=== PATIENT | female | born 1960 | race Caucasian/White ===

== ENCOUNTER → 2017-06-21 | Outpatient (CLI) | payer BC ==
[~2017-06-21] MED LIST: ATEN50TA8 PO; DOCU-105 PO; DOCU-94 PO; IBUP-103 PO; LOSA1TAB38 PO; SIME80CH PO; SODI1ENE4 RE; ZNT/150 PO
== END | disposition home or self-care (01) ==
LOC: C.RDSM 16:51
PROVIDERS: ATTEND Physical Medicine & Rehabilitation Sports Medicine
DX: M25.562 Pain in left knee (principal); Z96.651 Presence of right artificial knee joint

== ENCOUNTER → 2017-11-30 | Outpatient (CLI) | payer OTHER ==
[~2017-11-30] MED LIST changes: -ATEN50TA8 PO; +CYAN10005 PO; -DOCU-94 PO; +HYDR25TA4 PO; -LOSA1TAB38 PO; -SIME80CH PO; -SODI1ENE4 RE; +VNTHFA/IN INH
[2017-11-30 13:16] LABS: BASO % 0.2 %; BASO ABS # 0.02 K/uL (0-0.2); EOS % 1.4 %; EOS ABS # 0.12 K/uL (0-0.5); HEMATOCRIT 38.3 % (37-47); HEMOGLOBIN 12.6 g/dL (12.0-16.0); IG# 0.01 K/uL (0.00-0.02); LYMPH % 31.1 %; LYMPH ABS # 2.61 K/uL (1.2-3.4); MEAN CELL VOLUME 110.1 fL (80-100); MEAN CORPUSCULAR HEMOGLOBIN 36.2 pg (25-34); MEAN CORPUSCULAR HGB CONC 32.9 g/dl (32-36); MEAN PLATELET VOLUME 9.9 fL (7.4-10.4); MONO % 9.2 %; MONO ABS # 0.77 K/uL (0.11-0.59); NEUT ABS # 4.85 K/uL (1.4-6.5); PLATELET COUNT 177 K/uL (130-400); RED CELL DISTRIBUTION WIDTH CV 14.6 % (11.5-14.5); WHITE BLOOD COUNT 8.38 K/uL (4.8-10.8)
--- NOTE | 2017-11-30 13:16 | DIAGNOSTIC IMAGING REPORT ---
TWO VIEW CHEST CLINICAL HISTORY: Preoperative examination. FINDINGS: PA and lateral chest radiographs are compared to study dated 12/06/2013. The cardiomediastinal silhouette is unremarkable. The lungs and pleural spaces are clear. There is no pneumothorax. The bony thorax appears intact. IMPRESSION: No active disease in the chest. Electronically signed by: Navid Gil M.D. 11/30/2017 1:15 PM Dictated Date/Time: 11/30/2017 1:14 PM
[2017-11-30 13:30] LABS: PTT PATIENT 23.9 SECONDS (21.0-31.0)
[2017-11-30 13:33] LABS: BLOOD UREA NITROGEN 15 mg/dl (7-18); CALCIUM 8.9 mg/dl (8.5-10.1); CARBON DIOXIDE 27 mmol/L (21-32); CREATININE 0.49 mg/dl (0.60-1.20); GLUCOSE 96 mg/dl (70-99); POTASSIUM 3.4 mmol/L (3.5-5.1); SODIUM 141 mmol/L (136-145)
== END | disposition home or self-care (01) ==
LOC: C.CPL 12:23
PROVIDERS: ATTEND Physical Medicine & Rehabilitation Sports Medicine
DX: Z01.818 Encounter for other preprocedural examination (principal); Z01.810 Encounter for preprocedural cardiovascular examination; Z01.812 Encounter for preprocedural laboratory examination

== ENCOUNTER → 2017-11-30 | Outpatient (CLI) | payer OTHER ==
--- NOTE | 2017-11-30 12:25 | DIAGNOSTIC IMAGING REPORT ---
LEG LENGTH STUDY (WHOLE LEG) CLINICAL HISTORY: PRE OP EXAM preoperative evaluation COMPARISON STUDY: No previous studies for comparison. FINDINGS: Total right leg length 83 cm. Total left leg length 82.5 cm. Left leg is 5 mm shorter compared to the right. Femoral length on the right is 46.8 cm. Femoral length the left is 46.7 cm. IMPRESSION: 1. Total right leg length 83 cm. Total left leg length 82.5 cm. 2. Right femoral length 46.8 cm. Left femoral length 46.7 cm. The above report was generated using voice recognition software. It may contain grammatical, syntax or spelling errors. Electronically signed by: J Luis Coleman M.D. 11/30/2017 12:24 PM Dictated Date/Time: 11/30/2017 12:21 PM
== END | disposition home or self-care (01) ==
LOC: C.RDSM 09:51
PROVIDERS: ATTEND Physician Assistant
DX: Z01.818 Encounter for other preprocedural examination (principal)

== ENCOUNTER 2018-11-27 16:35 | Inpatient (IN) ==
[2018-11-27] MEDS ORDERED: ALBUTEROL 0.083% NEBU SOLN 3 ML VIAL NEB STA (17:02)
[2018-11-27] MEDS ORDERED: LEVOFLOXACIN/D5W 750 MG/150 ML BAG IV STA (17:02)
--- NOTE | 2018-11-27 17:49 | XRay Report ---
XR chest 1V portable HISTORY: Atypical Chest Pain COMPARISON: Chest 12/10/2017. FINDINGS: Slightly rotated study. No pneumothorax. No pleural effusions. The lungs are clear. The hea rt is normal in size. IMPRESSION: No acute process. Electronically signed by: Javier Amato M.D. 11/27/2018 5:47 PM
[2018-11-27 17:55] LABS: Basophils # (auto) 0.02 K/uL (0-0.2); Basophils % (auto) 0.1 %; Hematocrit (blood only) 38.7 % (37-47); Immature Granulocytes # (auto) 0.11 K/uL (0.00-0.02); Immature Granulocytes % (auto) 0.5 %; Lymphocytes # (auto) 1.02 K/uL (1.2-3.4); Lymphocytes % (auto) 4.3 %; Mean Corpuscular Hgb Conc 33.6 g/dL (32-36); Mean Corpuscular Volume 107.2 fL (80-100); Mean Platelet Volume 9.8 fL (7.4-10.4); Monocytes # (auto) 2.96 K/uL (0.11-0.59); Monocytes % (auto) 12.5 %; Neutrophils # (auto) 19.63 K/uL (1.4-6.5); Neutrophils % (auto) 82.6 %; Platelet Count 190 K/uL (130-400); RDW Coefficient of Variation 19.6 % (11.5-14.5); RDW Standard Deviation 76.6 fL (36.4-46.3); Red Blood Count 3.61 M/uL (4.2-5.4); White Blood Count 23.74 K/uL (4.8-10.8)
[2018-11-27 18:21] LABS: Alanine Aminotransferase 18 U/L (12-78); Albumin Level 2.9 gm/dl (3.4-5.0); BUN Creatinine Ratio 17.2 (10-20); Blood Urea Nitrogen 11 mg/dl (7-18); Calcium 8.4 mg/dl (8.5-10.1); Carbon Dioxide 31 mmol/L (21-32); Chloride 92 mmol/L (98-107); Est GFR (African American) 113.9; Est GFR (Non-African American) 98.3; Glucose 125 mg/dl (70-99); Sodium 133 mmol/L (136-145)
[2018-11-27] MEDS ORDERED: OXYCODONE HCL IR 5 MG TAB (IMMEDIATE RELEASE) PO STA (18:21)
[2018-11-27 18:24] LABS: Albumin Globulin Ratio 0.8 (0.9-2); Alkaline Phosphatase 143 U/L (45-117); Bilirubin,Total 1.3 mg/dl (0.2-1); Globulin 3.8 gm/dl (2.5-4.0); Total Protein 6.7 gm/dl (6.4-8.2); Troponin I < 0.015 ng/ml (0-0.045)
[2018-11-27 19:28] LABS: Potassium 2.2 mmol/L (3.5-5.1)
[2018-11-27] MEDS ORDERED: POTASSIUM CHLORIDE 20 MEQ TABCR PO STA ×2 (19:29→21:27)
[2018-11-27] MEDS: POTASSIUM CHLORIDE / WTR 10 MEQ/100 ML PLCT IV SCH ×2 (19:42→21:01)
[2018-11-27 19:55] LABS: Magnesium 1.8 mg/dl (1.8-2.4)
[2018-11-27] MEDS ORDERED: MAGNESIUM SULFATE / D5W 1 GM/100 ML BAG IV ONE (20:02)
--- NOTE | 2018-11-27 20:25 | Emergency Department Note ---
Entered by Aliya Simeon acting as a scribe for History of Present Illness General Chief complaint: Shortness of Breath/Dyspnea Stated complaint: CANT BREATH Source: patient History of Present Illness Onset (ago): day(s) 2 Location: chest Pain Consistency: + other (worsening) Maximum Pain Intensity: 7 Quality: + other (shortness of breath) Relieved By: not by medication (Ventolin inhaler) Associated symptoms: + denies other symptoms (diarrhea, urinary symptoms), + cough (productive) and + nausea/vomiting The patient is a 58 year old female who presents to the Emergency Room with complaints of worsening shortness of breath starting 2 days ago. The patient states that 2 days ago she started coughing up a yellow-brown mucus. She reports that it has continued to get worse to the point that she vomited once today from coughing so much. She states that it is to the point now that she feels like she is short of breath. She notes that she does have a Ventolin inhaler at home that she has been using with no relief. The patient complains of nausea. She notes that her was sick with similar symptoms, but not as bad as her. She notes that she is a smoker. She notes that she did not check her temperature. The patient denies recent steroid use, diarrhea, urinary symptoms, and wearing O2 at home. Home Medications Home Medications Medication Instructions Recorded Confirmed Type albuterol sulfate [Ventolin HFA] 2 puff INHALATION Q6H PRN 02/06/18 11/27/18 History docusate sodium 100 mg PO BID PRN 02/06/18 11/27/18 History hydrochlorothiazide 25 mg PO DAILY PRN 02/06/18 11/27/18 History ranitidine HCl 150 mg PO BID PRN 02/06/18 11/27/18 History oxycodone-acetaminophen 1 tab PO DIRECTED PRN 11/27/18 11/27/18 History potassium chloride 10 meq PO BID 11/27/18 11/27/18 History Allergies Allergy/AdvReac Type Severity Reaction Status Date / Time Bactrim Allergy Severe ANAPHYLAXIS Verified 12/21/17 05:39 celecoxib Allergy Severe ANAPHYLAXIS Verified 11/27/18 17:25 sulfamethoxazole Allergy Severe ANAPHYLAXIS Verified 11/27/18 17:25 trimethoprim Allergy Severe ANAPHYLAXIS Verified 11/27/18 17:25 Past Med/Surg History Medical History Ovarian cyst (Chronic) Diverticulitis (Chronic) Hypertension (Chronic) Abdominal pain (Acute) Blood per rectum (Acute) Colitis (Acute) Dehydration (Acute) Fecal retention (Acute) Hypokalemia (Acute) Left knee DJD Vomiting (Acute) COPD (chronic obstructive pulmonary disease) Surgical History S/P knee replacement (Resolved) Family History Other Cancer Gallbladder disease Hypertension Lung disease Social History marital status: Current Living Situation: Spouse current occupational status: employed Feels Safe at Home: Yes Smoking Status: Current every day smoker Review of Systems See HPI for pertinent positives & negatives. and A total of 10 systems reviewed and were otherwise negative Physical Exam Vital Signs Vital Signs - 24 hr 11/27/18 16:43 11/27/18 17:04 11/27/18 17:31 Temperature 36.8 C Temperature Source Oral Sepsis Recent Fever Within 48 Hours No Sepsis Action Taken by Nursing No Action Required Pulse Rate 102 H Pulse Rate [Apical] 96 H Pulse Rate from SpO2 Sensor Pulse Rhythm [Apical] Regular Respiratory Rate 24 20 Respiratory Effort / Characteristics Labored Short of Breath SOB on Exertion Respiratory Depth Normal Normal Respiratory Pattern Regular Blood Pressure 112/62 Blood Pressure [Right Arm] 116/78 Blood Pressure Mean 78 Blood Pressure Mean [Right Arm] 90 Blood Pressure Position [Right Arm] Sitting Pulse Oximetry 92 91 91 Oxygen Delivery Method Room Air Room Air Room Air Oxygen Flow Rate Fraction of Inspired Oxygen 91 11/27/18 17:45 11/27/18 18:30 Temperature Temperature Source Sepsis Recent Fever Within 48 Hours Sepsis Action Taken by Nursing Pulse Rate 98 H Pulse Rate [Apical] 92 H Pulse Rate from SpO2 Sensor 99 H Pulse Rhythm [Apical] Respiratory Rate 18 18 Respiratory Effort / Characteristics Respiratory Depth Respiratory Pattern Blood Pressure 110/43 L Blood Pressure [Right Arm] Blood Pressure Mean 65 Blood Pressure Mean [Right Arm] Blood Pressure Position [Right Arm] Pulse Oximetry 95 94 Oxygen Delivery Method Nasal Cannula Oxygen Flow Rate 2 Fraction of Inspired Oxygen GENERAL: sitting up in bed, agitated, on nasal canula, disheveled, dyspneic with conversation EYE EXAM: normal conjunctiva OROPHARYNX: no exudate, no erythema, lips, buccal mucosa, and tongue normal and mucous membranes are moist NECK: supple, no nuchal rigidity, no adenopathy, non-tender LUNGS: Diffuse wheezing bilaterally. Normal chest wall mechanics HEART: no murmurs, S1 normal and S2 normal ABDOMEN: abdomen soft, non-tender, normo-active bowel sounds, no masses, no rebound or guarding. BACK: Back is symmetrical on inspection and there is no deformity, no midline tenderness, no CVA tenderness. SKIN: no rashes and no bruising UPPER EXTREMITIES: upper extremities are grossly normal. LOWER EXTREMITIES: No pitting edema. Calves are equal bilaterally. NEURO EXAM: Normal sensorium, cranial nerves II-XII grossly intact, normal spee ch, no gross weakness of arms, no gross weakness of legs. Course ED COURSE: Vital signs were reviewed and showed tachycardia and hypoxia. The patients medical record was reviewed The above diagnostic studies were performed and reviewed. ED treatments and interventions as stated above. 1657: The patient was evaluated in room A2. A complete history and physical examination was performed. 1831: I reevaluated the patient and updated her on her test results. She is refusing to stay, but is willing to touch base with her . 1915: Upon reevaluation, the patient is willing to stay. I discussed my findings with the patient and she understands and agrees with the treatment plan. Based on the patients age, coexisting illnesses, exam and lab findings the decision to treat as an inpatient was made. The patient remained stable while under my care. The patient will be evaluated for further management. 1925: Dr. Herman LONG Hospitalist is aware of the patient at this time. Consultations Consultation #1: Dr. Herman LONG Hospitalist is aware of the patient at this time. Time: 19:25 Administered Medications Potassium Chloride (K Steven / Wtr) 10 meq in 100 mls @ 100 mls/hr IV Q1H HERB Stop: 11/27/18 21:29 Last Admin: 11/27/18 19:42 Dose: 100 mls/hr Documented by: [id number] Discontinued Medications Albuterol (Ventolin 0.083% 2.5mg/3ml) 5 mg NEB NOW STA Stop: 11/27/18 17:03 Last Admin: 11/27/18 17:41 Dose: 5 mg Documented by: [id number] Levofloxacin/Dextrose (Levaquin/D5w) 750 mg in 150 mls @ 100 mls/hr IV NOW STA Stop: 11/27/18 18:31 Last Infusion: 11/27/18 19:40 Dose: 0 mls/hr Documented by: [id number] Admin: 11/27/18 17:58 Dose: 100 mls/hr Documented by: [id number] Methylprednisolone (Solumedrol) 40 mg IV NOW STA Stop: 11/27/18 17:03 Last Admin: 11/27/18 17:58 Dose: 40 mg Documented by: [id number] Oxycodone HCl (Roxicodone Immediate Rel) 5 mg PO NOW STA Stop: 11/27/18 18:22 Last Admin: 11/27/18 18:30 Dose: 5 mg Documented by: [id number] Potassium Chloride (Klor-Con M20) 40 meq PO NOW STA Stop: 11/27/18 19:30 Last Admin: 11/27/18 19:42 Dose: 40 meq Documented by: [id number] Medical Decision Making Differential Diagnosis Differential diagnoses includes but is not limited to pneumonia, bronchitis, COPD/Asthma exacerbation, pneumothorax, pulmonary embolism, congestive heart f ailure, acute coronary syndrome Medical Records Attestation: I reviewed the patient's medical records. Home Medications Current Medication List: was personally reviewed by me Laboratory Data Attestation: I reviewed the patient's lab results. Result diagrams: 11/27/18 17:37 11/27/18 18:44 Lab Results 11/27/18 11/27/18 11/27/18 Range/Units 17:37 17:37 18:44 WBC 23.74 H (4.8-10.8) K/uL RBC 3.61 L (4.2-5.4) M/uL Hgb 13.0 (12.0-16.0) g/dL Hct 38.7 (37-47) % MCV 107.2 H (80-100) fL MCH 36.0 H (25-34) pg MCHC 33.6 (32-36) g/dL RDW Std Deviation 76.6 H (36.4-46.3) fL RDW Coeff of [place] 19.6 H (11.5-14.5) % Plt Count 190 (130-400) K/uL MPV 9.8 (7.4-10.4) fL Immature Gran % (Auto) 0.5 % Neut % (Auto) 82.6 % Lymph % (Auto) 4.3 % [place] % (Auto) 12.5 % Eos % (Auto) 0.0 % Baso % (Auto) 0.1 % Immature Gran # (Auto) 0.11 H (0.00-0.02) K/uL Neut # (Auto) 19.63 H (1.4-6.5) K/uL Lymph # (Auto) 1.02 L (1.2-3.4) K/uL [place] # (Auto) 2.96 H (0.11-0.59) K/uL Eos # (Auto) 0.00 (0-0.5) K/uL Baso # (Auto) 0.02 (0-0.2) K/uL Sodium 133 L (136-145) mmol/L Potassium 2.2 L* (3.5-5.1) mmol/L Chloride 92 L (98-107) mmol/L Carbon Dioxide 31 (21-32) mmol/L Anion Gap 10.0 (3-11) BUN 11 (7-18) mg/dl Creatinine 0.67 (0.6-1.2) mg/dl Est Cr Clr Drug Dosing Not Reportable Est GFR ( Amer) 113.9 Est GFR (Non-Af Amer) 98.3 BUN/Creatinine Ratio 17.2 (10-20) Glucose 125 H (70-99) mg/dl Calcium 8.4 L (8.5-10.1) mg/dl Magnesium Cancelled 1.8 Total Bilirubin 1.3 H (0.2-1) mg/dl AST 22 (15-37) U/L ALT 18 (12-78) U/L Alkaline Phosphatase 143 H (45-117) U/L Troponin I < 0.015 (0-0.045) ng/ml Total Protein 6.7 (6.4-8.2) gm/dl Albumin 2.9 L (3.4-5.0) gm/dl Globulin 3.8 (2.5-4.0) gm/dl Albumin/Globulin Ratio 0.8 L (0.9-2) Lipase 22 L (73-393) U/L Imaging Data Radiologist's Impression: Radiology results as stated below per my review and the radiologist's interpretation: XR chest 1V portable HISTORY: Atypical Chest Pain COMPARISON: Chest 12/10/2017. FINDINGS: Slightly rotated study. No pneumothorax. No pleural effusions. The lungs are clear. The heart is normal in size. IMPRESSION: No acute process. Electronically signed by: Javier Amato M.D. 11/27/2018 5:47 PM ECG Data Attestation: I personally reviewed and interpreted this ECG as follows: Indication: SOB/dyspnea Rate (beats per minute): 101 Rhythm: sinus tachycardia Findings: + other (normal axis), + nonspecific-ST abn (inferior and lateral) and + prolonged QT Comparison ECG Date: from (02/06/2018) Change: the following changes noted (QT prolongation is worse, nonspecific ST changes in the inferior and lateral are worse) Blood Pressure Blood Pressure Findings: Normal blood pressure Blood Pressure Disposition: did not require urgent referral MDM Narrative Patient is a 58-year-old female who presents the ER for cough, congestion and sh ortness of breath. She is a past medical history of COPD diverticulitis, hypertension, and hypokalemia. She notes her is sick with similar symptoms. IV was established and blood work was obtained and showed a leukocytosis of 23.7 thousand. No significant anemia. BMP with a potassium of 2.2. Mild hyponatremia. Bilirubin LFTs and troponin was unremarkable. Lipase was normal. Chest x-ray shows no focal infiltrate. EKG has some nonspecific ST wave changes which I favor secondary to the hypokalemia. I favor this potassium is low secondary to the neb treatments. Patient was given 40 mEq orally and 20 mEq IV. Patient did want to go home but I explained at length with the leukoc ytosis, mild hypoxia with a pulse ox of 88 to 92% associated with a hypokalemia and dyspnea with conversation I did feel was beneficial to bring her into the hospital. She was eventually agreeable. She was also given steroids and IV Levaquin. She is updated bedside. She was admitted to the hospital after discussion with the hospitalist, her and the patient. Impression & Plan COPD exacerbation, Bronchitis, Leukocytosis, Hypokalemia, Acute electrocardiography changes Discharge Plan Visit Data Chief Complaint: Shortness of Breath/Dyspnea Stated Complaint: CANT BREATH ED Provider: Fei Angelo Discharge Problem: COPD exacerbation, Bronchitis, Leukocytosis, Hypokalemia, Acute electrocardiography changes Patient Disposition: Being Evaluated by Hospitalist Forms Stand Alone Forms: My [facility] Prescriptions Prescriptions: No Action albuterol sulfate [Ventolin HFA] 90 mcg/actuation Hfa Aerosol Inhaler 2 puff INHALATION Q6H PRN (Reason: Shortness Of Breath Or Wheezing) RF: 0 docusate sodium 100 mg Capsule 100 mg PO BID PRN (Reason: Constipation) RF: 0 hydrochlorothiazide 25 mg Tablet 25 mg PO DAILY PRN (Reason: Hypertension) RF: 0 ranitidine HCl 150 mg Tablet 150 mg PO BID PRN (Reason: Acid Reflux) RF: 0 oxycodone-acetaminophen 5-325 mg tablet 1 tab PO DIRECTED PRN (Reason: Pain) RF: 0 potassium chloride 10 mEq tablet extended release 10 meq PO BID RF: 0 Referrals Referrals: PCP,NO [Primary Care Provider] - The scribe's documentation has been prepared under my direction and personally reviewed by me in its entirety. I confirm that the note above accurately reflects all work, treatment, procedures, and medical decision making performed by me.
--- NOTE | 2018-11-27 20:54 | History & Physical Report ---
Date of Service November 27, 2018 Assessment & Plan (1) COPD exacerbation: 58-year-old female with history of COPD, tobacco use, hypertension, hypokalemia presents with URI symptoms and dyspneaappears to be COPD exacerbation. The patient denies a significant history of exacerbations and hospitalizations. In addition, patient denies a history of outpatient events requiring steroid therapy. She only uses a rescue inhaler as needed. Patient's x-ray was negative for signs of pneumonia and she is been afebrile. This looks more like a viral picture causing any worsening of chronic lung disease, although the patient did have a white count of 23.74. Patient's urine is possibly infected, but may be contamination considering number of epithelial cells and the fact the patient is not having any dysuria. Patient was also found to be hypokalemic COPD exacerbation IV Solu-Medrol 40 mg 3 times daily, follow potassium closely Duo nebs every 2 hours Adding on doxycycline. Avoiding QT prolonging antibiotics in the setting of hypokalemia Leukocytosis Follow fever curve, likely viral bronchitis, adding doxycycline for atypical coverage in the setting COPD Hypokalemia Follow magnesium Repleted potassium 80 M EQ p.o., 2 bags of K rider EKG in the ED did not show any significant changes compared to previous EKGs Repeat EKG in the morning Smoking history Provide cessation education DVT prophylaxis Lovenox 40 every 24 hours CODE STATUS Full (2) Bronchitis: (3) Leukocytosis: (4) Hypertension: (5) Hypokalemia: History of Present Illness Patient states that she has had issues Chief Complaint: COPD exacerbation Primary Care Provider: NO PCP 58-year-old female with history of COPD, hypertension, hypokalemia presents with URI symptoms, dyspnea and cough. Patient states that the cold symptoms began 3 days ago and included runny nose and cough. She denies having any fevers. Her is also present states that he has been sick for about 1 week with a cold. Patient has a history of COPD and is a current smoker. Her only medication that she is in the outpatient is only albuterol as needed. She denies being hospitalized previously for a COPD exacerbation and she denies needing steroids before in the past. Patient describes being able to ambulate freely without dyspnea at baseline. States that she became concerned because today her cough was so bad that she was dry heaving and cannot keep food down. She experiences pleuritic chest pain with coughing. Patient denies a history of blood clots. Patient states that she has had issues with potassium balance before in the past, takes 20 M EQ per day. Constitutional; denies fevers, chills, night sweats CV; pleuritic chest pain with coughing, denies palpitations Pulmonary; reports dyspnea, wheezing GI; denies abdominal pain, reports nausea and vomiting with cough. Allergies Allergy/AdvReac Type Severity Reaction Status Date / Time Bactrim Allergy Severe ANAPHYLAXIS Verified 12/21/17 05:39 celecoxib Allergy Severe ANAPHYLAXIS Verified 11/27/18 17:25 sulfamethoxazole Allergy Severe ANAPHYLAXIS Verified 11/27/18 17:25 trimethoprim Allergy Severe ANAPHYLAXIS Verified 11/27/18 17:25 Home Medications Home Medications Medication Instructions Recorded Confirmed Type albuterol sulfate [Ventolin HFA] 2 puff INHALATION Q6H PRN 02/06/18 11/27/18 History docusate sodium 100 mg PO BID PRN 02/06/18 11/27/18 History hydrochlorothiazide 25 mg PO DAILY PRN 02/06/18 11/27/18 History ranitidine HCl 150 mg PO BID PRN 02/06/18 11/27/18 History oxycodone-acetaminophen 1 tab PO DIRECTED PRN 11/27/18 11/27/18 History potassium chloride 10 meq PO BID 11/27/18 11/27/18 History Past Med/Surg History Medical History Ovarian cyst (Chronic) Diverticulitis (Chronic) Hypertension (Chronic) Abdominal pain (Acute) Blood per rectum (Acute) Colitis (Acute) Dehydration (Acute) Fecal retention (Acute) Hypokalemia (Acute) Left knee DJD Vomiting (Acute) COPD (chronic obstructive pulmonary disease) Surgical History S/P knee replacement (Resolved) Family History Other Cancer Gallbladder disease Hypertension Lung disease Social History marital status: Current Living Situation: Spouse current occupational status: employed Feels Safe at Home: Yes Smoking Status: Current every day smoker Review of Systems Review of Systems: All systems reviewed & are unremarkable except as noted in HPI & below Physical Exam Constitutional: WD/WN, vitals as above Eyes: PERRL, conjunctivae normal, anicteric sclerae ENMT: external ear and nose normal, oropharynx normal Neck: trachea midline, no thyromegaly Respiratory: no respiratory distress, no retractions and not tachypneic Auscultation: + diminished lung sounds (Bilateral bases) and + wheezes (Diffuse, bilateral) Cardiovascular: RRR, no murmur, no edema Gastrointestinal (Abdomen): normal bowel sounds, soft, nontender, no hepatosplenomegaly Musculoskeletal: no cyanosis or clubbing, extremities motor strength 5/5 Skin: no rashes, warm and dry Neurologic: PERRL, EOMI, accommodation nl, no face palsy, no dysarthria Psychiatric: A+Ox3, euthymic affect Results & Data Vital Signs (Past 12 Hours) Vital Signs Temp Pulse Pulse Resp BP BP Pulse Ox 11/27/18 20:21 84 14 118/64 96 11/27/18 18:30 98 H 18 110/43 L 94 11/27/18 17:45 92 H 18 95 11/27/18 17:31 91 11/27/18 17:04 96 H 20 116/78 91 11/27/18 16:43 36.8 C 102 H 24 112/62 92 Diagnostic Findings [place], [place] [phone] XRay Report Patient: TODD LEWIS Date: 11/27/18 MR#: [id number]: [address] Acct ID:[id number]: Date: 1960[facility] Zip: [place] [address] Age: 58Location: ED Sex: F Room/Bed: Att Phy: Diagnosis: CANT BREATH Emily Phy: PCP,NO Service Date: 11/27/18 [facility] Phy: Interpreting Phy: Javier Amato MD Admit Phy: Ordering Phy: Fei Angelo DO cc: ~ XR chest 1V portable HISTORY: Atypical Chest Pain COMPARISON: Chest 12/10/2017. FINDINGS: Slightly rotated study. No pneumothorax. No pleural effusions. The lungs are clear. The heart is normal in size. IMPRESSION: No acute process. Electronically signed by: Javier Amato M.D. 11/27/2018 5:47 PM Dictated: 11/27/18 1746 Transcribed: 11/27/181745 Code Status & VTE Plan Code Status Full code VTE Prophylaxis Plan VTE Prophylaxis will be ordered: Yes Supervising Physician Co-Signing Physician Notes Pt seen/examined in conjunction with resident MD Ignacio Marroquin. Orders and plan of admission reviewed with resident. 58 y/o F Hx HTN, GERD, COPD, morbid obesity, smoker. Presenting with cough, wheezing, SOB, N/V. Her had recently been ill with a URI. Initial CXR is clear. She is hypoxic - requiring 02 and has a high white count. Labs are also notable for severe hypokalemia. OE: AAO x 3 S1,2 R BL wheezing and poor air movement NT, ND, BS + No CCE No deficits P: The pt will be treated for a COPD exacerbation. We do not have evidence of PNM and suspect viral etiology, however, she will r eceive antibiotics for the exacerbation regardless. We have repleted her K, provided Mg and will monitor on telemetry until her electrolytes normalize. She does not display any interest in smoking cessation. PG Care Time/CCT Total # of Minutes Spent Total Time Spent with Patient: Total time spent is greater than 50% in coordination of care (as documented) at patient's floor/unit and/or counseling patient: Resident Activity Tracking Resident Involvement: Resident Care Provided Care Provided: Adult Hospital Medicine (1) Leukocytosis Leukocytosis type: unspecified Qualified Code(s): D72.829 - Elevated white blood cell count, unspecified
[2018-11-27] MEDS ORDERED: DOCUSATE SODIUM 100 MG CAP PO PRN (21:23)
[2018-11-27] MEDS ORDERED: ALBUTEROL HFA 8 GM INHALER INH PRN (21:23)
[2018-11-27] MEDS ORDERED: ACETAMINOPHEN 65 ML IV PRN (21:23)
[2018-11-27] MEDS ORDERED: hydroCHLOROthiazide 25 MG TAB PO PRN (21:23)
[2018-11-27] MEDS: DOXYCYCLINE HYCLATE 100 MG in DEXTROSE 5% 100 ML IV SCH (22:01)
[2018-11-27 22:06] LABS: INR 1.1 (0.9-1.1); Prothrombin Time 11.4 Seconds (9.0-12.0)
[2018-11-27] MEDS: OXYCODONE/ACETAMINOPHEN 5mg/325mg TAB PO PRN (22:24)
[2018-11-28] MEDS: methylPREDNISolone 40 MG in SYRINGE 0 ML IV SCH ×3 (00:06→13:00)
[2018-11-28] MEDS: OXYCODONE/ACETAMINOPHEN 5mg/325mg TAB PO PRN ×3 (04:36→12:20)
[2018-11-28 06:17] LABS: Basophils # (auto) 0.01 K/uL (0-0.2); Basophils % (auto) 0.1 %; Hemoglobin 12.1 g/dL (12.0-16.0); Immature Granulocytes # (auto) 0.05 K/uL (0.00-0.02); Immature Granulocytes % (auto) 0.3 %; Lymphocytes # (auto) 0.48 K/uL (1.2-3.4); Mean Corpuscular Hgb Conc 33.6 g/dL (32-36); Mean Corpuscular Volume 106.5 fL (80-100); Mean Platelet Volume 9.8 fL (7.4-10.4); Monocytes # (auto) 0.56 K/uL (0.11-0.59); Monocytes % (auto) 3.5 %; Neutrophils # (auto) 14.99 K/uL (1.4-6.5); Neutrophils % (auto) 93.1 %; Platelet Count 188 K/uL (130-400); RDW Coefficient of Variation 19.4 % (11.5-14.5); Red Blood Count 3.38 M/uL (4.2-5.4); White Blood Count 16.09 K/uL (4.8-10.8)
[2018-11-28 06:58] LABS: Albumin Globulin Ratio 0.7 (0.9-2); Albumin Level 2.6 gm/dl (3.4-5.0); BUN Creatinine Ratio 18.2 (10-20); Bilirubin,Total 0.9 mg/dl (0.2-1); Calcium 8.1 mg/dl (8.5-10.1); Creatinine Clr Calc Pharmacy 108.8 ml/min; Est GFR (African American) 117.5; Est GFR (Non-African American) 101.3; Globulin 3.5 gm/dl (2.5-4.0); Magnesium 2.3 mg/dl (1.8-2.4); Potassium 3.1 mmol/L (3.5-5.1); Total Protein 6.1 gm/dl (6.4-8.2)
[2018-11-28] MEDS: ALBUT/IPRATROP 3MG/0.5MG NEB 3 ML VIAL NEB SCH ×2 (07:05→11:27)
[2018-11-28] MEDS ORDERED: ENOXAPARIN INJ 40 MG/0.4 ML SYR SQ SCH (08:00)
[2018-11-28] MEDS: DOXYCYCLINE HYCLATE 100 MG in DEXTROSE 5% 100 ML IV SCH (08:10)
[2018-11-28] MEDS ORDERED: POTASSIUM CHLORIDE 20 MEQ TABCR PO SCH (09:00)
--- NOTE | 2018-11-28 13:15 | Discharge Summary ---
Date of Service November 28, 2018 Admission HPI Per Admitting Provider 58-year-old female with history of COPD, hypertension, hypokalemia presents with URI symptoms, dyspnea and cough. Patient states that the cold symptoms began 3 days ago and included runny nose and cough. She denies having any fevers. Her is also present states that he has been sick for about 1 week with a cold. Patient has a history of COPD and is a current smoker. Her only medication that she is in the outpatient is only albuterol as needed. She denies being hospitalized previously for a COPD exacerbation and she denies needing steroids before in the past. Patient describes being able to ambulate freely without dyspnea at baseline. States that she became concerned because today her cough was so bad that she was dry heaving and cannot keep food down. She experiences pleuritic chest pain with coughing. Patient denies a history of blood clots. Patient states that she has had issues with potassium balance before in the past, takes 20 M EQ per day. Constitutional; denies fevers, chills, night sweats CV; pleuritic chest pain with coughing, denies palpitations Pulmonary; reports dyspnea, wheezing GI; denies abdominal pain, reports nausea and vomiting with cough. Admission Exam Per Admitting Provider Constitutional: WD/WN, vitals as above Eyes: PERRL, conjunctivae normal, anicteric sclerae ENMT: external ear and nose normal, oropharynx normal Neck: trachea midline, no thyromegaly Respiratory: no respiratory distress, no retractions and not tachypneic Auscultation: + diminished lung sounds (Bilateral bases) and + wheezes (Diffuse, bilateral) Cardiovascular: RRR, no murmur, no edema Gastrointestinal (Abdomen): normal bowel sounds, soft, nontender, no hepatosplenomegaly Musculoskeletal: no cyanosis or clubbing, extremities motor strength 5/5 Skin: no rashes, warm and dry Neurologic: PERRL, EOMI, accommodation nl, no face palsy, no dysarthria Psychiatric: A+Ox3, euthymic affect Principal Diagnosis COPD Exacerbation Discharge Exam Constitutional well developed and well nourished; no acute distress Eyes normal visual france by confrontation, PERRL and normal accommodation; no conjunctival abnormality ENMT Ears: no hearing impairment Nose: no external nose abnormality, no nasal discharge, no sinus tenderness, nasal mucous membranes not dry and no epistaxis Mouth: no lip abnormality and no audible dysphonia Neck trachea midline, no thyromegaly normal visual inspection and trachea midline; no anterior neck swelling and neck nontender Respiratory normal respiratory effort, + cough and able to speak in complete sentences; no respiratory distress, no labored breathing, no retractions, does not use accessory muscles, not tachypneic, no audible wheezes, no grunting and no nasal flaring Auscultation: + wheezes (Diffuses wheezes noted in all lung france.); no crackles, no rales and no rhonchi Cardiovascular RRR, no murmur, no edema Gastrointestinal (Abdomen) Inspection/Auscultation: abdomen normal to inspection and normal bowel sounds; abdomen not distended Percussion/Palpation: abdomen soft; abdomen nontender, no guarding and abdomen not firm Musculoskeletal Head/Neck/Chest: normocephalic and head atraumatic Skin normal turgor; no jaundice Neurologic awake; not confused and not obtunded Speech / Cognition: normal speech Psychiatric A+Ox3, euthymic affect Discharge Data Allergies Allergy/AdvReac Type Severity Reaction Status Date / Time Bactrim Allergy Severe ANAPHYLAXIS Verified 12/21/17 05:39 celecoxib Allergy Severe ANAPHYLAXIS Verified 11/27/18 17:25 sulfamethoxazole Allergy Severe ANAPHYLAXIS Verified 11/27/18 17:25 trimethoprim Allergy Severe ANAPHYLAXIS Verified 11/27/18 17:25 Consultations 11/27/18 19:29 ED Decision to Admit Stat 11/27/18 21:23 Consult Case Management - Discharge Planning Routine Hospital Course (1) COPD exacerbation: 58-year-old female with history of COPD, tobacco use, hypertension, hypokalemia presented with URI symptoms and dyspnea. COPD exacerbation -X-ray on admission was negative for signs of Pneumonia. -Labs revealed a white count of 23.74, but a viral etiology was determined to be more likely, worsening her baseline COPD. Patient given Duo nebs every 2 hours Patient given IV Solu-Medrol 40 mg 3 times daily -- Converted to PO Prednisone 40mg burst upon discharge. IV Doxycycline started to cover for atypicals -- Converted to PO doxycycline upon discharge. -Discussed with patient about preventing future exacerbations by Smoking Cessation and taking her Advair as prescribed. -Patient noted she had only been using Albuterol PRN. -Recommended to patient that she should have proper PFT's completed in the outpatient setting. Hypokalemia with no EKG changes Initial lab work revealed K 2.2, patient did note she takes daily potassium supplementation at home. Repleted potassium 80 M EQ p.o., 2 bags of K rider -Labs in the AM showed K 3.1 and further repletion with Klor-Con 80meq. Smoking history Provided cessation education -Patient noted she was uninterested in quitting at this time. (2) Bronchitis: (3) Leukocytosis: (4) Hypertension: (5) Hypokalemia: Total Time Total Time Spent Total Time Spent (In Minutes): <60 Discharge Plan Discharge Items Patient Disposition: Home - Self-Care Reason For Visit: CANT BREATH Discharge Diagnosis: COPD exacerbation secondary to Viral Bronchitis Discharge Goals: Decrease discomfort and Improve disease control Activity: Resume your previous activity Non-emergency contact: Primary Care Provider Call non-emergency contact if: you have any medication questions and your symptoms worsen Follow-up/Referrals: PCP,NO [Primary Care Provider] - Diet: Heart Healthy Addtl Provider Instructions: Ms. Mason, you were seen and evaluated in the ED yesterday after having worsening symptoms of shortness of breath and weakness. You had noted that you have progressively been worsening over the course of 2 days, and mentioned that you had a sick contact recently. A chest X-ray ruled out a pneumonia for you. L ab work revealed a white count, likely due to a viral infection, and you were put on IV steroids and antibiotics for treatment of your symptoms. You were also given a nebulizer treatment and put on 2L oxygen by nasal cannula that improved your status. Noted on your lab work was a low potassium level which was repleted through your IV and through Klor-con pills. Today you are feeling better and no longer require oxygen. Your shortness of breath has improved and you only note a slight "burning" discomfort deep in your chest when you inhale deeply. You also did a 2-step walking O2, which showed you could go home without oxygen. 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 -Prednisone 40mg once a day by mouth for 5 days. -Please continue your home Advair as prescribed like we discussed in the hospital this morning. -Please continue to use your home albuterol inhaler as prescribed. -Please continue your home medications as prescribed. -Please follow up with your PCP within the next 2-3 days. -Alternatively, you are welcome to follow [facility] Call [phone] to set up an appointment. -If you have any questions, please call your PCP. Prescriptions: New doxycycline hyclate 100 mg capsule 100 mg PO BID 7 Days Qty: 14 RF: 0 prednisone 20 mg tablet 40 mg PO DAILY 5 Days Qty: 10 RF: 0 Continued albuterol sulfate [Ventolin HFA] 90 mcg/actuation Hfa Aerosol Inhaler 2 puff INHALATION Q6H PRN (Reason: Shortness Of Breath Or Wheezing) RF: 0 docusate sodium 100 mg Capsule 100 mg PO BID PRN (Reason: Constipation) RF: 0 hydrochlorothiazide 25 mg Tablet 25 mg PO DAILY PRN (Reason: Hypertension) RF: 0 ranitidine HCl 150 mg Tablet 150 mg PO BID PRN (Reason: Acid Reflux) RF: 0 oxycodone-acetaminophen 5-325 mg tablet 1 tab PO DIRECTED PRN (Reason: Pain) RF: 0 potassium chloride 10 mEq tablet extended release 10 meq PO BID RF: 0 Stand-Alone Forms: My [facility] Discharge Orders: Discharge Order (Routine); Ordered 11/28/18 Ordered By: Gilmer Foster Admission Data Admit Date/Time: 11/27/18 20:17 Attending Provider: Hank Enriquez Admit Provider: Alo Marroquin Primary Care Provider: PCP,JERRY Other Providers: Hank Enriquez Service: Telemetry Medical Other Interventions: Discharge Summary Assessment (RN) Last Done: 11/28/18 12:38 DC Date/Time DO NOT enter until pt leaves facility: 11/28/18 13:17 Supervising Physician Co-Signing Physician Notes Resident Physician Supervision Note: I independently interviewed and examined the patient and verified the carpio history and physical, reviewed labs and image studies, discussed the case with the resident Dr. Foster and agree with the findings and care plan. Time spent in discharge 35 min
== END 2018-11-28 13:17 | disposition home or self-care (01) | DRG 192 ==
LOC: ED 16:35 → 2N 20:17
DX: J40 Bronchitis, not specified as acute or chronic; J44.1 Chronic obstructive pulmonary disease with (acute) exacerbation; D72.829 Elevated white blood cell count, unspecified; F17.200 Nicotine dependence, unspecified, uncomplicated; I10 Essential (primary) hypertension; E87.6 Hypokalemia; J44.0 Chronic obstructive pulmonary disease with (acute) lower respiratory infection

== ENCOUNTER 2018-12-20 14:31 | Inpatient (IN) ==
[2018-12-20] MEDS ORDERED: HYDROmorphone INJ 1 MG/ML SYRINGE IV PRN (14:49)
[2018-12-20] MEDS ORDERED: ONDANSETRON INJ 2 MG/ML 2 ML VIAL IV STA (14:49)
[2018-12-20] MEDS ORDERED: SODIUM CHLORIDE 0.9% 1000ML 1,000 ML IV SCH (15:00)
[2018-12-20 15:07] LABS: Basophils # (auto) 0.01 K/uL (0-0.2); Basophils % (auto) 0.1 %; Eosinophils # (auto) 0.16 K/uL (0-0.5); Eosinophils % (auto) 1.6 %; Hematocrit (blood only) 34.9 % (37-47); Hemoglobin 11.9 g/dL (12.0-16.0); Immature Granulocytes # (auto) 0.02 K/uL (0.00-0.02); Immature Granulocytes % (auto) 0.2 %; Lymphocytes % (auto) 21.5 %; Mean Corpuscular Hemoglobin 36.8 pg (25-34); Mean Corpuscular Hgb Conc 34.1 g/dL (32-36); Mean Platelet Volume 10.1 fL (7.4-10.4); Monocytes # (auto) 0.63 K/uL (0.11-0.59); Monocytes % (auto) 6.2 %; Neutrophils % (auto) 70.4 %; Platelet Count 109 K/uL (130-400); RDW Coefficient of Variation 16.9 % (11.5-14.5); RDW Standard Deviation 67.6 fL (36.4-46.3); Red Blood Count 3.23 M/uL (4.2-5.4); White Blood Count 10.22 K/uL (4.8-10.8)
[2018-12-20 15:30] LABS: Albumin Globulin Ratio 0.9 (0.9-2); Albumin Level 3.1 gm/dl (3.4-5.0); BUN Creatinine Ratio 15.9 (10-20); Bilirubin,Total 1.2 mg/dl (0.2-1); Calcium 8.7 mg/dl (8.5-10.1); Creatinine Clr Calc Pharmacy 65.4 ml/min; Est GFR (African American) 71.2; Est GFR (Non-African American) 61.4; Globulin 3.3 gm/dl (2.5-4.0); Potassium 2.3 mmol/L (3.5-5.1); Total Protein 6.4 gm/dl (6.4-8.2)
[2018-12-20 15:56] LABS: Magnesium 1.4 mg/dl (1.8-2.4)
--- NOTE | 2018-12-20 15:59 | Emergency Department Note ---
Entered by Benoit Mcmahon acting as a scribe for History of Present Illness General Chief complaint: Back Injury/Pain Stated complaint: BACK PAIN Time Seen by Provider: 12/20/18 14:40 Source: patient History of Present Illness Onset (ago): month(s) 4 Location: back Pain Consistency: + other (Worsening) Maximum Pain Intensity: 10 Quality: + other (Soreness and pain) Associated symptoms: + denies other symptoms (Vomiting) and + other (Black and tarry stools with blood present, blood in urine) The patient is a 58 y/o gender who presents to the ED w/ CC of worsening back soreness and pain beginning 4 months ago. The patient states she was evaluated in the ED yesterday for similar symptoms and was told that the physician was concerned about her gallbladder. She reports she was evaluated at [facility] this morning and had tests performed and then came to the ED. The patient notes she woke up one day and her symptoms started. She states she has been evaluated by a specialist and had a bone scan performed. The patient reports last weekend she was not able to eat or drink anything because she was dizzy. She notes she had similar symptoms who that earlier this morning in addition to severe right sided abdominal pain. The patient states after being evaluated at [facility] she ate three quarters of an Egg McMuffin from [employer]. She reports having black and tarry stools, but she denies wanting a rectal exam performed. The patient notes that her stool and urine were tested yesterday, and they were found to have some blood in them. She denies recent vomiting within the past 2 days. Home Medications Home Medications Medication Instructions Recorded Confirmed Type albuterol sulfate [Ventolin HFA] 2 puff INHALATION Q6H PRN 02/06/18 12/20/18 History docusate sodium 100 mg PO BID PRN 02/06/18 12/20/18 History hydrochlorothiazide 25 mg PO DAILY PRN 02/06/18 12/20/18 History ranitidine HCl 150 mg PO BID PRN 02/06/18 12/20/18 History oxycodone-acetaminophen 1 tab PO Q12H PRN 11/27/18 12/20/18 History potassium chloride 20 meq PO QPM 11/27/18 12/20/18 History fluticasone propion-salmeterol 1 puff INHALATION Q12H 12/19/18 12/20/18 History [Advair Diskus] ipratropium-albuterol 3 ml INHALATION Q6H PRN 12/19/18 12/20/18 History Allergies Allergy/AdvReac Type Severity Reaction Status Date / Time Bactrim Allergy Severe ANAPHYLAXIS Verified 12/21/17 05:39 celecoxib Allergy Severe ANAPHYLAXIS Verified 12/20/18 15:02 sulfamethoxazole Allergy Severe ANAPHYLAXIS Verified 12/20/18 15:02 trimethoprim Allergy Severe ANAPHYLAXIS Verified 12/20/18 15:02 Past Med/Surg History Medical History Ovarian cyst (Chronic) Diverticulitis (Chronic) Hypertension (Chronic) Abdominal pain (Acute) Blood per rectum (Acute) Colitis (Acute) Dehydration (Acute) Fecal retention (Acute) Hypokalemia (Acute) Left knee DJD Vomiting (Acute) COPD (chronic obstructive pulmonary disease) Surgical History S/P knee replacement (Resolved) Family History Other Cancer Gallbladder disease Hypertension Lung disease Social History Preferred Language: [place] Communication Ability: Effective Gut Dropper Required: No Beliefs That Will Affect Care: None marital status: Current Living Situation: Spouse current occupational status: employed Feels Safe at Home: Yes Smoking Status: Current every day smoker Tobacco Type: cigarettes ; Cigarettes Per Day: 20 ; Second Hand Exposure: No ; Hx Alcohol Use: Yes Alcohol type: hard liquor Hx Substance Use: No Review of Systems See HPI for pertinent positives & negatives. and A total of 10 systems reviewed and were otherwise negative Physical Exam Vital Signs Vital Signs - 24 hr 12/20/18 14:35 12/20/18 15:15 12/20/18 16:46 Temperature 36.6 C Temperature Source Oral Sepsis Recent Fever Within 48 Hours No Sepsis New/Unexplained Change in Mental Status No Sepsis Action Taken by Nursing No Action Required Pulse Rate 116 H 105 H 99 H Pulse Rate from SpO2 Sensor 102 H Pulse Rhythm Respiratory Rate 18 17 19 Respiratory Depth Normal Blood Pressure 116/57 L Blood Pressure Mean 76 Pulse Oximetry 93 96 Oxygen Delivery Method Room Air 12/20/18 16:47 12/20/18 16:48 12/20/18 17:00 Temperature Temperature Source Sepsis Recent Fever Within 48 Hours Sepsis New/Unexplained Change in Mental Status Sepsis Action Taken by Nursing Pulse Rate 104 H 101 H 103 H Pulse Rate from SpO2 Sensor 93 H 103 H Pulse Rhythm Regular Respiratory Rate 16 22 16 Respiratory Depth Blood Pressure 115/57 L Blood Pressure Mean 76 Pulse Oximetry 97 96 94 Oxygen Delivery Method Room Air 12/20/18 17:01 Temperature Temperature Source Sepsis Recent Fever Within 48 Hours Sepsis New/Unexplained Change in Mental Status Sepsis Action Taken by Nursing Pulse Rate 104 H Pulse Rate from SpO2 Sensor 103 H Pulse Rhythm Respiratory Rate 20 Respiratory Depth Blood Pressure 124/46 L Blood Pressure Mean 72 Pulse Oximetry 97 Oxygen Delivery Method GENERAL: Awake, alert, well-appearing, in no acute distress HENT: Normocephalic, atraumatic. Oropharynx unremarkable. EYES: Normal conjunctiva. Sclera non-icteric. NECK: Supple. No nuchal rigidity. FROM. No JVD. RESPIRATORY: Clear to auscultation. CARDIAC: Regular rate, normal rhythm. Extremities warm and well perfused. Pulses equal. ABDOMEN: Tenderness in the right uppper quadrant. Soft, non-distended. No rebo und or guarding. No masses. RECTAL: Patient refused rectal exam. MUSCULOSKELETAL: Chest examination reveals no tenderness. The back is symmetrical on inspection without obvious abnormality. There is no CVA tenderness to palpation. No joint edema. LOWER EXTREMITIES: Calves are equal size bilaterally and non-tender. No edema. No discoloration. NEURO: Normal sensorium. No sensory or motor deficits noted. SKIN: No rash or jaundice noted. Course 1443: Past medical records reviewed. The patient was evaluated in room B10. A complete history and physical examination was performed. 1632: Upon reevaluation, the patient is resting comfortably. I discussed laboratory and radiographic results with the patient. She verbalized agreement of the treatment plan. The patient will be evaluated for further management and care. 1637: I reviewed the patient's case with Dr. Arias [facility] Hospitalist. He will evaluate the patient for further management. Administered Medications Pantoprazole Sodium 40 mg/ (Dextrose) 100 mls @ 20 mls/hr IV Q5H HERB Stop: 12/21/18 17:00 Last Admin: 12/20/18 21:21 Dose: 20 mls/hr Documented by: [id number] Infusion: 12/20/18 21:21 Dose: 20 mls/hr Documented by: [id number] Admin: 12/20/18 17:57 Dose: 20 mls/hr Documented by: [id number] Potassium Chloride 40 meq/ (Sodium Chloride) 1,020 mls @ 50 mls/hr IV .[id number] HERB Stop: 01/19/19 19:15 Last Admin: 12/20/18 19:35 Dose: 50 mls/hr Documented by: [id number] Ondansetron HCl (Zofran) 4 mg IV Q4H PRN PRN Reason: Nausea Stop: 01/19/19 19:15 Last Admin: 12/20/18 19:46 Dose: 4 mg Documented by: [id number] Oxycodone/Acetaminophen (Percocet 5mg/325mg) 1 tab PO Q6H PRN PRN Reason: Pain Stop: 01/03/19 19:15 Last Admin: 12/20/18 20:04 Dose: 1 tab Documented by: [id number] Potassium Chloride (Klor-Con M10) 40 meq PO BID [facility] Stop: 12/21/18 09:01 Last Admin: 12/20/18 21:21 Dose: 40 meq Documented by: [id number] Fluticasone/Salmeterol (Advair Diskus 100/50) 1 puffs INH Q12H [facility] Stop: 01/19/19 19:59 Last Admin: 12/20/18 21:22 Dose: 1 puffs Documented by: [id number] Discontinued Medications Hydromorphone HCl (Dilaudid) 1 mg IV Q15M PRN PRN Reason: Pain Stop: 01/03/19 14:48 Last Admin: 12/20/18 15:12 Dose: 1 mg Documented by: [id number] Sodium Chloride (Nss 1000ml) 1,000 mls @ 999 mls/hr IV .Q1H1M [facility] Stop: 12/20/18 16:00 Last Infusion: 12/20/18 16:12 Dose: 0 mls/hr Documented by: [id number] Admin: 12/20/18 15:10 Dose: 999 mls/hr Documented by: [id number] Potassium Chloride (K Steven / Wtr) 10 meq in 100 mls @ 100 mls/hr IV Q1H [facility] Stop: 12/20/18 17:44 Last Infusion: 12/20/18 19:31 Dose: 0 mls/hr Documented by: [id number] Admin: 12/20/18 17:50 Dose: 100 mls/hr Documented by: [id number] Infusion: 12/20/18 17:41 Dose: 0 mls/hr Documented by: [id number] Admin: 12/20/18 16:40 Dose: 100 mls/hr Documented by: [id number] Magnesium Sulfate/Dextrose (Magnesium Sulfate / D5w) 1 gm in 100 mls @ 100 mls/hr IV ONE ONE Stop: 12/20/18 17:05 Last Infusion: 12/20/18 17:50 Dose: 0 mls/hr Documented by: [id number] Admin: 12/20/18 16:43 Dose: 100 mls/hr Documented by: [id number] Pantoprazole Sodium 80 mg/ (Dextrose) 120 mls @ 480 mls/hr IV TODAY@1700 [facility] Stop: 12/20/18 17:14 Last Admin: 12/20/18 18:37 Dose: Not Given Documented by: [id number] Ondansetron HCl (Zofran) 4 mg IV NOW STA Stop: 12/20/18 14:50 Last Admin: 12/20/18 15:10 Dose: 4 mg Documented by: [id number] Potassium Chloride (Klor-Con M20) 40 meq PO NOW STA Stop: 12/20/18 16:30 Last Admin: 12/20/18 16:36 Dose: 40 meq Documented by: [id number] Medical Decision Making Medical Records Attestation: I reviewed the patient's medical records. Home Medications Current Medication List: was personally reviewed by me Laboratory Data Attestation: I reviewed the patient's lab results. Result diagrams: 12/20/18 14:52 12/20/18 14:52 Lab Results 12/20/18 12/20/18 12/20/18 Range/Units 14:52 14:52 14:52 WBC 10.22 (4.8-10.8) K/uL RBC 3.23 L (4.2-5.4) M/uL Hgb 11.9 L (12.0-16.0) g/dL Hct 34.9 L (37-47) % MCV 108.0 H (80-100) fL MCH 36.8 H (25-34) pg MCHC 34.1 (32-36) g/dL RDW Std Deviation 67.6 H (36.4-46.3) fL RDW Coeff of [place] 16.9 H (11.5-14.5) % Plt Count 109 L (130-400) K/uL MPV 10.1 (7.4-10.4) fL Immature Gran % (Auto) 0.2 % Neut % (Auto) 70.4 % Lymph % (Auto) 21.5 % [place] % (Auto) 6.2 % Eos % (Auto) 1.6 % Baso % (Auto) 0.1 % Immature Gran # (Auto) 0.02 (0.00-0.02) K/uL Neut # (Auto) 7.20 H (1.4-6.5) K/uL Lymph # (Auto) 2.20 (1.2-3.4) K/uL [place] # (Auto) 0.63 H (0.11-0.59) K/uL Eos # (Auto) 0.16 (0-0.5) K/uL Baso # (Auto) 0.01 (0-0.2) K/uL Sodium 135 L (136-145) mmol/L Potassium 2.3 L* (3.5-5.1) mmol/L Chloride 96 L (98-107) mmol/L Carbon Dioxide 31 (21-32) mmol/L Anion Gap 8.0 (3-11) BUN 16 (7-18) mg/dl Creatinine 1.02 (0.6-1.2) mg/dl Est Cr Clr Drug Dosing 65.4 ml/min Est GFR ( Amer) 71.2 Est GFR (Non-Af Amer) 61.4 BUN/Creatinine Ratio 15.9 (10-20) Glucose 119 H (70-99) mg/dl Calcium 8.7 (8.5-10.1) mg/dl Magnesium 1.4 L (1.8-2.4) mg/dl Total Bilirubin 1.2 H D (0.2-1) mg/dl AST 64 H (15-37) U/L ALT 40 (12-78) U/L Alkaline Phosphatase 142 H (45-117) U/L Total Creatine Kinase 63 (26-192) U/L CK-MB (CK-2) 1.1 (0.5-3.6) ng/ml CK/CKMB % Calc 1.7 (0-3.0) Troponin I < 0.015 (0-0.045) ng/ml Total Protein 6.4 (6.4-8.2) gm/dl Albumin 3.1 L (3.4-5.0) gm/dl Globulin 3.3 (2.5-4.0) gm/dl Albumin/Globulin Ratio 0.9 (0.9-2) Lipase 79 (73-393) U/L Imaging Data Radiologist's Impression: Radiology results as stated below per my review and the radiologist's interpretation: US gallbladder HISTORY: Pain. Nausea. Pt c/o RUQ abd pain COMPARISON: None. FINDINGS: Liver: Fatty infiltration Gallbladder: Trace gallbladder sludge. No pericholecystic edema. No shadowing gallstones. Common bile duct: 5 mm Pancreas: Obscured Right kidney: 10 cm maximum dimension. No evidence for hydronephrosis. IMPRESSION: 1. Trace gallbladder sludge. 2. Normal caliber bile ducts. 3. Fatty replacement of the liver. The above report was generated using voice recognition software. It may contain grammatical, syntax or spelling errors. Electronically signed by: J Luis Coleman M.D. 12/20/2018 4:21 PM XR chest 1V portable HISTORY: 58 years-old Female Pt c/o Ruq abd pain acute right upper quadrant abdominal pain COMPARISON: CT abdomen and pelvis 12/19/2018, chest radiograph 11/27/2018 TECHNIQUE: Portable AP view of the chest FINDINGS: Cardiomediastinal and hilar silhouettes are within normal limits. No pneumothorax, pleural effusion, focal airspace consolidation or overt pulmonary edema. Bones of the chest appear grossly intact. IMPRESSION: No acute process. The above report was generated using voice recognition software. It may contain grammatical, syntax or spelling errors. Electronically signed by: Mathew Kaplan M.D. 12/20/2018 4:34 PM ECG Data Attestation: I personally reviewed and interpreted this ECG as follows: Indication: back/shoulder pain (back pain) Rate (beats per minute): 97 Rhythm: sinus rhythm Findings: + prolonged QT; no ST depression and no ST elevation Blood Pressure Blood Pressure Findings: Normal blood pressure Blood Pressure Disposition: elevated BP felt to be situational MDM Narrative This is a 58-year-old female who presents emergency department complaining of right upper quadrant abdominal pain. The patient was here yesterday and left AGAINST MEDICAL ADVICE. The patient's EKG is concerning for flattening of the T waves. Her potassium was found to be critically low. For this reason she was given IV potassium as well as oral potassium here in the emergency department. Ultrasound of her right upper quadrant does not reveal any evidence of acute cholecystitis. Due to the fact that the patient's potassium has remained low I strongly recommended that the patient be admitted to the hospital. She was also started on 1 g of magnesium. I did discuss her case with the hospitalist service who agreed to admit the patient. In addition the patient is also heme positive from below so she was started on a Protonix bolus and drip. Patient was in agreement with the treatment plan. Impression & Plan Hypokalemia, Leukocytosis, Hypertension, Abdominal pain, Blood per rectum Critical Care Time I have personally spent greater than 30 minutes of critical care time in the direct management of this patient. This includes bedside care, interpretation of diagnostic studies, and testing, discussion with consultants, patient, and family members, and other required patient management activities. This 30 minutes is in excess of all separately billable procedures. Discharge Plan Visit Data *Final* Discharge Date/Time: 12/20/18 18:52 Chief Complaint: Back Injury/Pain Stated Complaint: BACK PAIN ED Provider: Campos Torres Discharge Problem: Hypokalemia, Leukocytosis, Hypertension, Abdominal pain, Blood per rectum Patient Disposition: Admitted As Inpatient Discharge Instructions Interventions: ED Discharge Assessment Last Done: 12/20/18 18:52 Discharge Problem: Leukocytosis Qualifiers: Leukocytosis type: unspecified Qualified Code(s): D72.829 - Elevated white blood cell count, unspecified Hypertension Qualifiers: Hypertension type: unspecified Qualified Code(s): I10 - Essential (primary) hypertension Abdominal pain Qualifiers: Abdominal location: unspecified location Qualified Code(s): R10.9 - Unspecified abdominal pain The scribe's documentation has been prepared under my direction and personally reviewed by me in its entirety. I confirm that the note above accurately reflects all work, treatment, procedures, and medical decision making performed by me.
[2018-12-20] MEDS ORDERED: MAGNESIUM SULFATE / D5W 1 GM/100 ML BAG IV ONE (16:06)
--- NOTE | 2018-12-20 16:22 | Ultrasound Report ---
US gallbladder HISTORY: Pain. Nausea. Pt c/o RUQ abd pain COMPARISON: None. FINDINGS: Liver: Fatty infiltration Gallbladder: Trace gallbladder sludge. No pericholecystic edema. No shadowing gallstones. Common bile duct: 5 mm Pancreas: Obscured Right kidney: 10 cm maximum dimension. No evidence for hydronephrosis. IMPRESSION: 1. Trace gallbladder sludge. 2. Normal caliber bile ducts. 3. Fatty replacement of the liver. The above report was generated using voice recognition software. It may contain grammatical, syntax or spelling errors. Electronically signed by: J Luis Coleman M.D. 12/20/2018 4:21 PM
[2018-12-20] MEDS ORDERED: POTASSIUM CHLORIDE 20 MEQ TABCR PO STA (16:29)
--- NOTE | 2018-12-20 16:35 | XRay Report ---
XR chest 1V portable HISTORY: 58 years-old Female Pt c/o Ruq abd pain acute right upper quadrant abdominal pain COMPARISON: CT abdomen and pelvis 12/19/2018, chest radiograph 11/27/2018 TECHNIQUE: Portable AP view of the chest FINDINGS: Cardiomediastinal and hilar silhouettes are within normal limits. No pneumothorax, pleural effusion, focal airspace consolidation or overt pulmonary edema. Bones of the chest appear grossly intact. IMPRESSION: No acute process. The above report was generated using voice recognition software. It may contain grammatical, syntax o r spelling errors. Electronically signed by: Mathew Kaplan M.D. 12/20/2018 4:34 PM
[2018-12-20] MEDS: POTASSIUM CHLORIDE / WTR 10 MEQ/100 ML PLCT IV SCH ×2 (16:40→17:50)
[2018-12-20 16:45] LABS: Creatine Kinase 63 U/L (26-192)
[2018-12-20] MEDS ORDERED: PANTOprazole 80 MG in DEXTROSE 5% 100 ML IV SCH (17:00)
[2018-12-20 17:12] LABS: Creatine Kinase MB 1.1 ng/ml (0.5-3.6); Troponin I < 0.015 ng/ml (0-0.045)
--- NOTE | 2018-12-20 17:28 | History & Physical Report ---
Date of Service December 20, 2018 Assessment & Plan (1) Upper GI bleed: Concern for upper GI bleed given her coffee-ground emesis. Her hgb and vital signs are stable, so large bleed seems less likely. Ddx includes gastritis (most likely; possibly from her alcohol consumption), ulcer disease, or variceal. Variceal seems very unlikely given her benign course and no visualized ascites on both CT a/p and gallbladder ultrasound. - Protonix gtt (was verbal ordered to pharmacy given backorder; will drop off after 24 hours) - GI consult - Clear liquids, then NPO @ midnight - Patient reluctant, but willing to undergo EGD if needed (2) Hypokalemia: Likely due to HCTZ as she has no known potassium-wasting issue. She has been taking her HCTZ daily, whereas she was on it "PRN" for leg swelling for some time previously. This could easily exacerbate the low potassium. - Replete aggressively (3) Hepatitis: Had mild hepatitis yesterday when she presented initially to the ED. Given her LFT pattern (AST:ALT::2:1) and history, likely mild alcoholic hepatitis. Already resolving. - Trend LFTs - Wound Care Rn on drinking (4) Alcohol consumption heavy: Per patient, she and her drink at least 1 bottle of bourbon every week. Patient was somewhat defensive when answering alcohol questions, so it may be more. Mild thrombocytopenia points toward bone marrow suppression or possible cirrhosis. - Monitor for withdrawal - Wound Care Rn on reasonable consumption (5) Hypertension: On HCTZ. - Hold for low potassium - Consider ACEi to prevent recurrence if BP runs high (6) COPD (chronic obstructive pulmonary disease): First hospitalized exacerbation earlier this month. Presently breathing at baseline. - Continue home inhaler - DuoNebs PRN (7) Tobacco abuse: Smokes about 1ppd. Declined patch. - Counseled cessation (8) DVT prophylaxis: SCDs - No chemoprophylaxis while concern for bleeding History of Present Illness Primary Care Provider: NO PCP 58yo F w/ hx of COPD, HTN who presents with concern for upper GI bleed. Per patient, she has had approx. 1 week of coffee ground emesis, nausea, and loss of appetite. She reports she vomits 3-4 times per day. Each time is a small volume (possible 20mL or so), but that is is black and looks like grounds or sometimes yellow. She reports frequent nausea and poor PO intake during this time. She was in the ED on 12/19, but left AMA and has actually not had any since then. However, she re-presented to the ED due to continued concern. She reports having dark brown to yellow, loose stools which is pretty standard for her. She also reports generalized weakness. She denies any fevers, chills, or sweats. She denies any dizziness, loss of consciousness, or chest pain. She reports that she and her drink approx. 1 bottle of bourbon in a a week, though she is somewhat cagey about how much she personally drinks. Allergies Allergy/AdvReac Type Severity Reaction Status Date / Time Bactrim Allergy Severe ANAPHYLAXIS Verified 12/21/17 05:39 celecoxib Allergy Severe ANAPHYLAXIS Verified 12/20/18 15:02 sulfamethoxazole Allergy Severe ANAPHYLAXIS Verified 12/20/18 15:02 trimethoprim Allergy Severe ANAPHYLAXIS Verified 12/20/18 15:02 Home Medications Home Medications Medication Instructions Recorded Confirmed Type albuterol sulfate [Ventolin HFA] 2 puff INHALATION Q6H PRN 02/06/18 12/20/18 History docusate sodium 100 mg PO BID PRN 02/06/18 12/20/18 History hydrochlorothiazide 25 mg PO DAILY PRN 02/06/18 12/20/18 History ranitidine HCl 150 mg PO BID PRN 02/06/18 12/20/18 History oxycodone-acetaminophen 1 tab PO Q12H PRN 11/27/18 12/20/18 History potassium chloride 20 meq PO QPM 11/27/18 12/20/18 History fluticasone propion-salmeterol 1 puff INHALATION Q12H 12/19/18 12/20/18 History [Advair Diskus] ipratropium-albuterol 3 ml INHALATION Q6H PRN 12/19/18 12/20/18 History Past Med/Surg History Medical History Ovarian cyst (Chronic) Diverticulitis (Chronic) Hypertension (Chronic) Abdominal pain (Acute) Blood per rectum (Acute) Colitis (Acute) Dehydration (Acute) Fecal retention (Acute) Hypokalemia (Acute) Left knee DJD Vomiting (Acute) COPD (chronic obstructive pulmonary disease) Surgical History S/P knee replacement (Resolved) Family History Other Cancer Gallbladder disease Hypertension Lung disease Social History Preferred Language: [place] Communication Ability: Effective Diazo Technician Required: No Beliefs That Will Affect Care: None marital status: Current Living Situation: Spouse current occupational status: employed Feels Safe at Home: Yes Smoking Status: Current every day smoker Tobacco Type: cigarettes ; Hx Alcohol Use: Yes Alcohol type: hard liquor Hx Substance Use: No Review of Systems Review of Systems: All systems reviewed & are unremarkable except as noted in HPI & below Physical Exam Constitutional: WD/WN, vitals as above Eyes: EOM intact bilaterally; no conjunctival abnormality ENMT: external ear and nose normal, oropharynx normal Neck: trachea midline, no thyromegaly normal visual inspection Respiratory: normal respiratory effort, lungs clear to auscultation no respiratory distress Cardiovascular: RRR, no murmur, no edema Gastrointestinal (Abdomen): Inspection/Auscultation: abdomen normal to inspection; abdomen not distended and + abnormal bowel sounds (Hypoactive) Percussion/Palpation: abdomen soft; abdomen nontender, no guarding, abdomen not rigid and no ascites Musculoskeletal: no cyanosis or clubbing, extremities motor strength 5/5 Skin: no rashes, warm and dry Neurologic: moves all extremities and awake Psychiatric: Orientation: alert, oriented to person and cooperative Results & Data Vital Signs (Past 12 Hours) Vital Signs Temp Pulse Resp BP Pulse Ox 12/20/18 16:48 101 H 22 96 12/20/18 14:35 36.6 C 116 H 18 116/57 L 93 Code Status & VTE Plan VTE Prophylaxis Plan VTE Prophylaxis will be ordered: Yes PG Care Time/CCT Total # of Minutes Spent Total Time Spent with Patient: Total time spent is greater than 50% in coordination of care (as documented) at patient's floor/unit and/or counseling patient:
[2018-12-20] MEDS: PANTOprazole 40 MG in DEXTROSE 5% 100 ML IV SCH ×2 (17:57→21:21)
[2018-12-20] MEDS ORDERED: ALBUT/IPRATROP 3MG/0.5MG NEB 3 ML VIAL INH PRN (19:16)
[2018-12-20] MEDS ORDERED: DOCUSATE SODIUM 100 MG CAP PO PRN (19:16)
[2018-12-20] MEDS: POTASSIUM CHLORIDE 40 MEQ in SODIUM CHLORIDE 0.9% 1000ML 1,000 ML IV SCH (19:35)
[2018-12-20] MEDS: ONDANSETRON INJ 2 MG/ML 2 ML VIAL IV PRN (19:46)
[2018-12-20] MEDS: OXYCODONE/ACETAMINOPHEN 5mg/325mg TAB PO PRN (20:04)
[2018-12-20] MEDS: POTASSIUM CHLORIDE 10 MEQ TABCR PO SCH (21:21)
[2018-12-20] MEDS: FLUTICASONE/SALMETEROL 100/50 (ADVAIR) 14 PUFF/1 INHALER INH SCH (21:22)
[2018-12-21] MEDS: PANTOprazole 40 MG in DEXTROSE 5% 100 ML IV SCH ×3 (01:29→10:41)
[2018-12-21] MEDS: OXYCODONE/ACETAMINOPHEN 5mg/325mg TAB PO PRN ×3 (04:04→16:38)
[2018-12-21] MEDS: ONDANSETRON INJ 2 MG/ML 2 ML VIAL IV PRN ×2 (05:00→09:56)
[2018-12-21] MEDS: SUCRALFATE 1 GM/10 ML UDC PO PRN ×2 (05:52→10:42)
[2018-12-21] MEDS: FLUTICASONE/SALMETEROL 100/50 (ADVAIR) 14 PUFF/1 INHALER INH SCH (07:44)
[2018-12-21] MEDS: POTASSIUM CHLORIDE 10 MEQ TABCR PO SCH (07:45)
[2018-12-21 08:08] LABS: Hematocrit (blood only) 30.7 % (37-47); Hemoglobin 10.2 g/dL (12.0-16.0); Mean Corpuscular Hemoglobin 36.6 pg (25-34); Mean Corpuscular Hgb Conc 33.2 g/dL (32-36); RDW Coefficient of Variation 17.1 % (11.5-14.5); RDW Standard Deviation 70.1 fL (36.4-46.3); Red Blood Count 2.79 M/uL (4.2-5.4); White Blood Count 6.55 K/uL (4.8-10.8)
[2018-12-21 08:36] LABS: Platelet Count 89 K/uL (130-400)
[2018-12-21 08:37] LABS: Platelet Estimate Decreased (Normal)
[2018-12-21 08:48] LABS: Albumin Globulin Ratio 0.9 (0.9-2); Albumin Level 2.6 gm/dl (3.4-5.0); Bilirubin,Total 0.9 mg/dl (0.2-1); Calcium 7.8 mg/dl (8.5-10.1); Creatinine Clr Calc Pharmacy 92.3 ml/min; Est GFR (African American) 106.7; Est GFR (Non-African American) 92.1; Globulin 2.9 gm/dl (2.5-4.0); Magnesium 1.7 mg/dl (1.8-2.4); Total Protein 5.5 gm/dl (6.4-8.2)
--- NOTE | 2018-12-21 09:21 | Gastrointestinal Consultation ---
Date of Consultation December 21, 2018 Assessment & Plan (1) Upper GI bleed: 1. NPO for now. 2. Continue PPI ggt at 8 mg/hr. 3. EGD with Dr. Partida today. 4. Additional recommendations will be made pending results of testing. Supervising Physician Co-Signing Physician Notes Agree with LILLI Mendez as above Abd: Soft, NT, ND, +BS Continue current therapy EGD today for further evaluation of symptoms. History of Present Illness Reason for Consultation: UGIB Requesting Physician: Dr. Arias Attending Physician: Flor Yarbrough MD History of Present Illness Patient is a 58 year-old obese female with a history of heavy alcohol consumption as well as recent NSAID use in relation to lower back pain reporting that she was recently treated for Lyme disease with oral Prednisone and Doxycycline and states the Prednisone was extended due to shortness of breath from known chronic obstructive pulmonary disease. In taking the Prednisone, the shortness of breath has improved. She states, however, that for the past week she has been having loss of appetite and nausea with vomiting which demonstrated dark emesis intermittently. Stools are also reported to be dark. Lower abdominal cramping. Patient reports that she has not taken any NSAID pain relievers since starting opioid analgesics two months ago, however. Denies any chest pain, palpitations, dysphagia, odynophagia, diarrhea, constipation, hematochezia, urinary sx, leg edema today or other complaints. H&H on arrival was noted to be 12.3/10.2 and has dropped to 10.2/30.7 today. She has been started on a PPI ggt. Allergies Allergy/AdvReac Type Severity Reaction Status Date / Time Bactrim Allergy Severe ANAPHYLAXIS Verified 12/21/17 05:39 celecoxib Allergy Severe ANAPHYLAXIS Verified 12/20/18 15:02 sulfamethoxazole Allergy Severe ANAPHYLAXIS Verified 12/20/18 15:02 trimethoprim Allergy Severe ANAPHYLAXIS Verified 12/20/18 15:02 Home Medications Home Medications Medication Instructions Recorded Confirmed Type albuterol sulfate [Ventolin HFA] 2 puff INHALATION Q6H PRN 02/06/18 12/20/18 H istory docusate sodium 100 mg PO BID PRN 02/06/18 12/20/18 History hydrochlorothiazide 25 mg PO DAILY PRN 02/06/18 12/20/18 History ranitidine HCl 150 mg PO BID PRN 02/06/18 12/20/18 History oxycodone-acetaminophen 1 tab PO Q12H PRN 11/27/18 12/20/18 History potassium chloride 20 meq PO QPM 11/27/18 12/20/18 History fluticasone propion-salmeterol 1 puff INHALATION Q12H 12/19/18 12/20/18 History [Advair Diskus] ipratropium-albuterol 3 ml INHALATION Q6H PRN 12/19/18 12/20/18 History Patient History Medical History Tobacco abuse Hepatitis Alcohol consumption heavy Upper GI bleed COPD exacerbation (Acute) Ovarian cyst (Chronic) Diverticulitis (Chronic) Hypertension (Chronic) Abdominal pain (Acute) Blood per rectum (Acute) Colitis (Acute) Dehydration (Acute) Fecal retention (Acute) Hypokalemia (Acute) Left knee DJD Vomiting (Acute) COPD (chronic obstructive pulmonary disease) Surgical History S/P knee replacement (Resolved) Family History Other Cancer Gallbladder disease Hypertension Lung disease Social History Preferred Language: Syriac Communication Ability: Effective Master Hearth Technician Required: No Beliefs That Will Affect Care: None marital status: Current Living Situation: Spouse current occupational status: employed Feels Safe at Home: Yes Smoking Status: Current every day smoker Tobacco Type: cigarettes ; Cigarettes Per Day: 20 ; Second Hand Exposure: No ; Hx Alcohol Use: Yes Alcohol type: hard liquor Hx Substance Use: No Review of Systems Review of Systems: All systems reviewed & are unremarkable except as noted in HPI & below Physical Exam Constitutional: WD/WN, vitals as above Eyes: EOM intact bilaterally Neck: normal appearance Respiratory: + audible wheezes; no respiratory distress Cardiovascular: Rate/Rhythm: regular rate and regular rhythm Heart Sounds: no gallop and no murmur Gastrointestinal (Abdomen): normal bowel sounds, soft, nontender, no hepatosplenomegaly Inspection/Auscultation: abdomen not distended Musculoskeletal: Extremities: no cyanosis no lower extremity edema Skin: no rashes, warm and dry Neurologic: moves all extremities Psychiatric: A+Ox3, euthymic affect Results & Data Vital Signs (Past 12 Hours) Vital Signs Temp Pulse Pulse Resp BP Pulse Ox 12/21/18 07:22 85 12/21/18 07:10 36.5 C 86 18 101/62 94 12/21/18 03:59 36.7 C 86 20 104/64 94 12/21/18 00:00 90 12/20/18 23:40 36.5 C 89 18 95/61 L 94 Laboratory Results Abnormal lab results 12/20/18 12/20/18 12/20/18 Range/Units 14:52 14:52 14:52 RBC 3.23 L (4.2-5.4) M/uL Hgb 11.9 L (12.0-16.0) g/dL Hct 34.9 L (37-47) % MCV 108.0 H (80-100) fL MCH 36.8 H (25-34) pg RDW Std Deviation 67.6 H (36.4-46.3) fL RDW Coeff of [place] 16.9 H (11.5-14.5) % Plt Count 109 L (130-400) K/uL Neut # (Auto) 7.20 H (1.4-6.5) K/uL [place] # (Auto) 0.63 H (0.11-0.59) K/uL Platelet Estimate (Normal) Sodium 135 L (136-145) mmol/L Potassium 2.3 L* (3.5-5.1) mmol/L Chloride 96 L (98-107) mmol/L Glucose 119 H (70-99) mg/dl Calcium (8.5-10.1) mg/dl Magnesium 1.4 L (1.8-2.4) mg/dl Total Bilirubin 1.2 H D (0.2-1) mg/dl AST 64 H (15-37) U/L Alkaline Phosphatase 142 H (45-117) U/L Total Protein (6.4-8.2) gm/dl Albumin 3.1 L (3.4-5.0) gm/dl 12/20/18 12/21/18 12/21/18 Range/Units 23:35 07:37 07:37 RBC 2.79 L (4.2-5.4) M/uL Hgb 10.0 L 10.2 L (12.0-16.0) g/dL Hct 30.7 L (37-47) % MCV 110.0 H (80-100) fL MCH 36.6 H (25-34) pg RDW Std Deviation 70.1 H (36.4-46.3) fL RDW Coeff of [place] 17.1 H (11.5-14.5) % Plt Count 89 L (130-400) K/uL Neut # (Auto) (1.4-6.5) K/uL [place] # (Auto) (0.11-0.59) K/uL Platelet Estimate Decreased L (Normal) Sodium (136-145) mmol/L Potassium 3.0 L D (3.5-5.1) mmol/L Chloride (98-107) mmol/L Glucose 100 H (70-99) mg/dl Calcium 7.8 L (8.5-10.1) mg/dl Magnesium 1.7 L (1.8-2.4) mg/dl Total Bilirubin (0.2-1) mg/dl AST 50 H (15-37) U/L Alkaline Phosphatase 120 H (45-117) U/L Total Protein 5.5 L (6.4-8.2) gm/dl Albumin 2.6 L (3.4-5.0) gm/dl PG Care Time/CCT Total # of Minutes Spent Total Time Spent with Patient: Total time spent is greater than 50% in coordination of care (as documented) at patient's floor/unit and/or counseling patient:
[2018-12-21] MEDS ORDERED: THIAMINE HCL 100 MG in SYRINGE 9 ML IV SCH (09:30)
--- NOTE | 2018-12-21 13:05 | Anesthesiology Consultation ---
Date of Service December 21, 2018 Assessment & Plan (1) Encounter for pre-operative examination: Chart Review Chart Review: Acceptable Risk for Surgery and Patient NOT seen in Pre Admission Testing Consults Requested none History Surgery Operation Date: 12/21/18 09:30 Proposed Procedures p Esophagogastroduodenoscopy Dr Partida - Loyd Castillo Case, DO Height/Weight Height: 5 ft 2 in Weight: 94.7 kg Allergies Allergy/AdvReac Type Severity Reaction Status Date / Time Bactrim Allergy Severe ANAPHYLAXIS Verified 12/21/17 05:39 celecoxib Allergy Severe ANAPHYLAXIS Verified 12/20/18 15:02 sulfamethoxazole Allergy Severe ANAPHYLAXIS Verified 12/20/18 15:02 trimethoprim Allergy Severe ANAPHYLAXIS Verified 12/20/18 15:02 Medications Home Medications Medication Instructions Recorded Confirmed Last Taken albuterol sulfate [Ventolin HFA] 2 puff INHALATION Q6H PRN 02/06/18 12/20/18 Unknown docusate sodium 100 mg PO BID PRN 02/06/18 12/20/18 12/19/18 hydrochlorothiazide 25 mg PO DAILY PRN 02/06/18 12/20/18 12/20/18 04:30 ranitidine HCl 150 mg PO BID PRN 02/06/18 12/20/18 12/19/18 oxycodone-acetaminophen 1 tab PO Q12H PRN 11/27/18 12/20/18 12/20/18 04:30 potassium chloride 20 meq PO QPM 11/27/18 12/20/18 12/19/18 fluticasone propion-salmeterol 1 puff INHALATION Q12H 12/19/18 12/20/18 12/20/18 [Advair Diskus] ipratropium-albuterol 3 ml INHALATION Q6H PRN 12/19/18 12/20/18 Unknown Active Medications Generic Name Dose Route Start Last Admin Trade Name Freq PRN Reason Stop Dose Admin Docusate Sodium 100 mg 12/20/18 19:16 12/21/18 04:03 Colace PO 01/19/19 19:15 100 mg BID PRN Administration Constipation Pantoprazole Sodium 40 mg/ 100 mls @ 20 mls/hr 12/20/18 17:15 12/21/18 10:41 Dextrose IV 12/21/18 17:00 20 mls/hr Q5H HERB Administration Potassium Chloride 40 meq/ 1,020 mls @ 50 mls/hr 12/20/18 19:16 12/20/18 19:35 Sodium Chloride IV 01/19/19 19:15 50 mls/hr .[id number] HERB Administration Thiamine HCl 100 mg/ Syringe 10 mls @ 2 mls/min 12/21/18 09:30 12/21/18 09:56 IV 01/20/19 09:29 2 mls/min QAM HERB Administration Ondansetron HCl 4 mg 12/20/18 19:16 12/21/18 09:56 Zofran IV 01/19/19 19:15 4 mg Q4H PRN Administration Nausea Oxycodone/Acetaminophen 1 tab 12/20/18 19:16 12/21/18 09:56 Percocet 5mg/325mg PO 01/03/19 19:15 1 tab Q6H PRN Administration Pain Fluticasone/Salmeterol 1 puffs 12/20/18 20:00 12/21/18 07:44 Advair Diskus 100/50 INH 01/19/19 19:59 1 puffs Q12H HERB Administration Sucralfate 1 gm 12/21/18 05:24 12/21/18 10:42 Carafate PO 01/20/19 08:59 1 gm QID PRN Administration GERD NPO Date Last Intake of Fluids: 12/21/18 Time Last Intake of Fluids: 08:00 Last Intake of Fluids Comment: sip of water Date Last Intake of Solids: 12/20/18 Past Medical History Medical History Tobacco abuse Hepatitis Alcohol consumption heavy Upper GI bleed COPD exacerbation (Acute) Ovarian cyst (Chronic) Diverticulitis (Chronic) Hypertension (Chronic) Abdominal pain (Acute) Blood per rectum (Acute) Colitis (Acute) Dehydration (Acute) Fecal retention (Acute) Hypokalemia (Acute) Left knee DJD Vomiting (Acute) COPD (chronic obstructive pulmonary disease) Past Family History Family History Other Cancer Gallbladder disease Hypertension Lung disease Past Surgical History Surgical History S/P knee replacement (Resolved) Social History Smoking Status: Current every day smoker tobacco type: cigarettes Smoking cigarettes per day: 20 Do You Dip or Chew Tobacco: No Hx Alcohol Use: Yes Alcohol type: hard liquor alcohol intake frequency: 0-2 drinks per day Hx Substance Use: No substance use type: does not use Physical Exam Vital Signs Last Vital Signs Temp 36.6 C 12/21/18 11:07 Pulse 86 12/21/18 11:07 Resp 18 12/21/18 11:07 BP 106/69 12/21/18 11:07 Pulse Ox 95 12/21/18 11:07 Testing Laboratory Results 12/21/18 07:37 12/21/18 07:37 Electrocardiogram Date: 12/20/18 Findings: + NSR @ (97) Premature atrial complexes, Prolonged QT, When compared with ECG of 28-NOV-2018 07:15, Premature atrial complexes are now Present
[2018-12-21] MEDS ORDERED: ALBUT/IPRATROP 3MG/0.5MG NEB 3 ML VIAL NEB STA (14:50)
--- NOTE | 2018-12-21 15:29 | GI REPORT ---
Patient Name: Karen Mason Procedure Date: 12/21/2018 3:06 PM Date of : 1960 Admit Type: Inpatient Age: 58 Gender: Female Attending MD: Loyd Partida DO Procedure: Upper GI endoscopy Providers: Loyd Partida DO Referring MD: Flor Yarbrough Indications: Coffee-ground emesis Medicines: Monitored Anesthesia Care Complications: No immediate complications. Estimated Blood Loss: Estimated blood loss: none. Procedure: Pre-Anesthesia Assessment: - Prior to the procedure, a History and Physical was performed, and patient medications and allergies were reviewed. The patient's tolerance of previous anesthesia was also reviewed. The risks and benefits of the procedure and the sedation options and risks were discussed with the patient. All questions were answered, and informed consent was obtained. Prior Anticoagulants: The patient has taken no previous anticoagulant or antiplatelet agents. ASA Grade Assessment: III - A patient with severe systemic disease. After reviewing the risks and benefits, the patient was deemed in satisfactory condition to undergo the procedure. After obtaining informed consent, the endoscope was passed under direct vision. Throughout the procedure, the patient's blood pressure, pulse, and oxygen saturations were monitored continuously. The scope was introduced through the mouth, and advanced to the second part of duodenum. The upper GI endoscopy was accomplished without difficulty. The patient tolerated the procedure well. Findings: Non-severe esophagitis with no bleeding was found. Localized mild inflammation characterized by erythema was found in the gastric antrum. Biopsies were taken with a cold forceps for histology. The examined duodenum was normal. Impression: - Non-severe esophagitis. - Gastritis. Biopsied. - Normal examined duodenum. Recommendation: - Resume previous diet. - Continue present medications. - Await pathology results. - Return to primary care physician as previously scheduled. Loyd Partida DO 12/21/2018 3:29:26 PM This report has been signed electronically. Note Initiated On: 12/21/2018 3:06 PM Number of Addenda: 0 I attest to the content of the Intraoperative Record and orders documented therein, exceptions below {[id number]}
--- NOTE | 2018-12-21 15:50 | Anesthesiology Progress Note ---
Date of Service December 21, 2018 Anesthesia Post Procedure Vital Signs Vital Signs: Temp Pulse Pulse Pulse Resp BP BP 12/21/18 15:41 83 16 144/62 H 12/21/18 15:26 89 16 105/74 12/21/18 15:03 78 18 12/21/18 14:21 98.1 F 94 H 20 112/77 12/21/18 11:07 97.9 F 86 18 106/69 12/21/18 07:22 85 12/21/18 07:10 97.7 F 86 18 101/62 12/21/18 03:59 98.1 F 86 20 104/64 12/21/18 00:00 90 12/20/18 23:40 97.7 F 89 18 95/61 L 12/20/18 21:05 88 152/88 H 12/20/18 19:54 92 H 12/20/18 19:41 98.2 F 16 105/69 12/20/18 18:30 88 15 127/69 12/20/18 18:02 87 13 12/20/18 18:00 89 24 111/51 L 12/20/18 17:59 88 19 112/55 L 12/20/18 17:30 93 H 27 H 12/20/18 17:01 104 H 20 124/46 L 12/20/18 17:00 103 H 16 12/20/18 16:48 101 H 22 12/20/18 16:47 104 H 16 115/57 L 12/20/18 16:46 99 H 19 Pulse Ox 12/21/18 15:41 96 12/21/18 15:26 96 12/21/18 15:03 94 12/21/18 14:21 93 12/21/18 11:07 95 12/21/18 07:22 12/21/18 07:10 94 12/21/18 03:59 94 12/21/18 00:00 12/20/18 23:40 94 12/20/18 21:05 12/20/18 19:54 12/20/18 19:41 90 12/20/18 18:30 97 12/20/18 18:02 95 12/20/18 18:00 97 12/20/18 17:59 97 12/20/18 17:30 93 12/20/18 17:01 97 12/20/18 17:00 94 12/20/18 16:48 96 12/20/18 16:47 97 12/20/18 16:46 Pain Intensity Lower Abdomen: Pain Intensity: 8 Bilateral Posterior Back: Pain Intensity: 3 Transfer of Care Handoff Completed per policy Notes Mental Status: alert / awake / arousable and participated in evaluation Patient Amnestic to Procedure: Yes Nausea / Vomiting: adequately controlled Pain: adequately controlled Airway Patency, RR, SpO2: stable & adequate BP & HR: stable & adequate Hydration State: stable & adequate Anesthetic Complications: no major complications apparent and Pt Satisfied with anesthetic care
[2018-12-21 16:15] VITALS: BP 124/78; TEMP 97.9; O2SAT 97
[2018-12-21] MEDS: POTASSIUM CHLORIDE 40 MEQ in SODIUM CHLORIDE 0.9% 1000ML 1,000 ML IV SCH (16:39)
--- NOTE | 2018-12-21 16:43 | Discharge Summary ---
Date of Service December 21, 2018 Admission HPI Per Admitting Provider 58yo F w/ hx of COPD, HTN who presents with concern for upper GI bleed. Per patient, she has had approx. 1 week of coffee ground emesis, nausea, and loss of appetite. She reports she vomits 3-4 times per day. Each time is a small volume (possible 20mL or so), but that is is black and looks like grounds or sometimes yellow. She reports frequent nausea and poor PO intake during this time. She was in the ED on 12/19, but left AMA and has actually not had any since then. However, she re-presented to the ED due to continued concern. She reports having dark brown to yellow, loose stools which is pretty standard for her. She also reports generalized weakness. She denies any fevers, chills, or sweats. She denies any dizziness, loss of consciousness, or chest pain. She reports that she and her drink approx. 1 bottle of bourbon in a a week, though she is somewhat cagey about how much she personally drinks. Principal Diagnosis Upper GI bleed secondary to gastritis Discharge Exam Constitutional WD/WN, vitals as above Respiratory normal respiratory effort, lungs clear to auscultation Cardiovascular RRR, no murmur, no edema Gastrointestinal (Abdomen) normal bowel sounds, soft, nontender, no hepatosplenomegaly Discharge Data Allergies Allergy/AdvReac Type Severity Reaction Status Date / Time Bactrim Allergy Severe ANAPHYLAXIS Verified 12/21/17 05:39 celecoxib Allergy Severe ANAPHYLAXIS Verified 12/20/18 15:02 sulfamethoxazole Allergy Severe ANAPHYLAXIS Verified 12/20/18 15:02 trimethoprim Allergy Severe ANAPHYLAXIS Verified 12/20/18 15:02 Consultations 12/20/18 16:34 ED Decision to Admit Stat 12/20/18 19:16 Consult Gastroenterology Routine Procedures Performed Operation Date: 12/21/18 09:30 Actual Procedures p EGD Biopsy Cytology - Loyd Castillo Case, DO Ordered Studies 12/20/18 14:49 US gallbladder Stat Hospital Course (1) Upper GI bleed: 58 y/o F here with Concern for upper GI bleed given her coffee-ground emesis. Had CT scan and gallbladder ultrasound showing no signs of varices. - Her hgb and vital signs were stable. Kept on Protonix gtt, NPO and IVF were given. - Underwent EGD 12/21/18 showing non-severe gastritis/esophagitis. Biopsies were taken. - h/h stayed stable. - Discharged home on home meds. Hypokalemia: - Likely due to HCTZ as she has no known potassium-wasting issue. - Repleted while in hospital - Home on double dose of Kcl - 20meq bid. 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 - Had not had any drink in one week. No signs of withdrawal during hospital stay. - Floor [employer] on reasonable consumption Hypertension: - On HCTZ. resumed on discharge with increased dose of kcl. COPD (chronic obstructive pulmonary disease): - baseline - Continued home inhaler - DuoNebs PRN Tobacco abuse: - Counseled cessation (2) Alcohol consumption heavy: (3) Hepatitis: (4) Hypertension: Total Time Total Time Spent Total Time Spent (In Minutes): 35 min Discharge Plan Discharge Items Patient Disposition: Home - Self-Care Reason For Visit: UPPER GI BLEED Discharge Diagnosis: Coffee Ground emesis with no active source of bleeding on EGD. Likely from gastritis/esophagitis Discharge Goals: Decrease discomfort Activity: Resume your previous activity Non-emergency contact: Primary Care Provider Call non-emergency contact if: you have any medication questions and your symptoms worsen Follow-up/Referrals: PCPJERRY [Primary Care Provider] - Diet: Regular Addtl Provider Instructions: Follow up with your family physician in one week Prescriptions: New potassium chloride 20 mEq tablet extended release 20 meq PO BID 30 Days Qty: 60 RF: 4 Continued albuterol sulfate [Ventolin HFA] 90 mcg/actuation Hfa Aerosol Inhaler 2 puff INHALATION Q6H PRN (Reason: Shortness Of Breath Or Wheezing) RF: 0 docusate sodium 100 mg Capsule 100 mg PO BID PRN (Reason: Constipation) RF: 0 hydrochlorothiazide 25 mg Tablet 25 mg PO DAILY PRN (Reason: Hypertension) RF: 0 ranitidine HCl 150 mg Tablet 150 mg PO BID PRN (Reason: Acid Reflux) RF: 0 ipratropium-albuterol 0.5 mg-3 mg(2.5 mg base)/3 mL solution for nebulization 3 ml inhalation Q6H PRN (Reason: Wheezing) RF: 0 fluticasone propion-salmeterol [Advair Diskus] 100-50 mcg/dose blister with device 1 puff inhalation Q12H RF: 0 oxycodone-acetaminophen 5-325 mg tablet 1 tab PO Q12H PRN (Reason: Pain) RF: 0 Discontinued potassium chloride 10 mEq tablet extended release 20 meq PO QPM RF: 0 Stand-Alone Forms: [facility] Discharge Orders: Discharge Order (Routine); Ordered 12/21/18 Ordered By: Flor Yarbrough Admission Data Admit Date/Time: 12/20/18 17:09 Attending Provider: Flor Yarbrough Admit Provider: Rene Arias Primary Care Provider: PCP,NO Other Providers: Rene Arias ; Reji Delgado Service: Telemetry Medical
[2018-12-21 16:46] VITALS: PULSE 78
[2018-12-21] MEDS ORDERED: PANTOprazole 40 MG in SYRINGE 0 ML IV SCH (21:00)
== END 2018-12-21 17:33 | disposition home or self-care (01) | DRG 379 ==
LOC: ED 14:31 → SUATTDRO 17:09 → 2W 17:09